=== PATIENT | male | born 1995 | race Caucasian/White ===

== ENCOUNTER 2022-07-17 06:17 | Emergency (ER) | payer MEDICAID ==
[2022-07-17] MEDS ORDERED: Acetaminophen/oxyCODONE 325-5 MG Tab PO ONE (07:14)
[2022-07-17] MEDS ORDERED: Ondansetron 4 MG Tab.DIS PO ONE (07:14)
== END 2022-07-17 09:40 | disposition home or self-care (01) ==
LOC: JD.ED 06:17
DX: S83.412A Sprain of medial collateral ligament of left knee, initial encounter (principal); M23.8X2 Other internal derangements of left knee; Z88.8 Allergy status to other drugs, medicaments and biological substances
CPT/HCPCS: 73562; 99283; A9270

== ENCOUNTER 2023-01-23 15:29 | Emergency (ER) | payer MEDICAID | END 2023-01-23 17:39 | disposition home or self-care (01) | LOC: JD.ED 15:29 | DX: S83.411A Sprain of medial collateral ligament of right knee, initial encounter (principal); R60.0 Localized edema; Z88.5 Allergy status to narcotic agent; Z88.8 Allergy status to other drugs, medicaments and biological substances; W00.0XXA Fall on same level due to ice and snow, initial encounter | CPT/HCPCS: 73564-26-RT; 73564-RT; 99283 ==

== ENCOUNTER 2023-02-12 23:26 | Emergency (ER) | payer MEDICAID | END 2023-02-13 00:11 | disposition home or self-care (01) | LOC: JD.ED 23:26 | DX: S02.2XXA Fracture of nasal bones, initial encounter for closed fracture (principal); F10.929 Alcohol use, unspecified with intoxication, unspecified; F17.210 Nicotine dependence, cigarettes, uncomplicated; Z88.5 Allergy status to narcotic agent; Y04.0XXA Assault by unarmed brawl or fight, initial encounter | CPT/HCPCS: 70160; 70160-26; 99283 ==

== ENCOUNTER 2024-09-24 12:00 | Emergency (ER) | payer MEDICAID ==
[2024-09-24] MEDS: Metoclopramide 10 MG/2 ML SDV IVPUSH ONE (13:05)
[2024-09-24] MEDS: Sodium Chloride 0.9% 1,000 ML IV ONE (13:08)
[2024-09-24 13:58] LABS: BASOPHILS ABSOLUTE AUTO 0.1 K/mm3 (0.0-0.2); BASOPHILS PERCENT AUTO 0.4 % (0.0-1.0); EOSINOPHILS PERCENT AUTO 0.1 % (0.0-6.0); HEMATOCRIT 48.6 % (42.0-52.0); IMMATURE GRAN ABSOLUTE AUTO 0.06 K/mm3 (0.00-0.05); IMMATURE GRAN PERCENT AUTO 0.5 % (0.0-0.4); LYMPHOCYTES ABSOLUTE AUTO 0.9 K/mm3 (1.0-4.8); LYMPHOCYTES PERCENT AUTO 6.8 % (24.0-44.0); MEAN PLATELET VOLUME 10.2 fl (9.4-12.4); MONOCYTES ABSOLUTE AUTO 0.6 K/mm3 (0.0-0.8); MONOCYTES PERCENT AUTO 4.7 % (0.0-8.0); NEUTROPHILS ABSOLUTE AUTO 11.3 K/mm3 (1.8-7.7); NEUTROPHILS PERCENT AUTO 87.5 % (41.0-71.0); PLATELET COUNT,PLT 321 K/mm3 (150-400); RED BLOOD CELL COUNT 5.31 M/mm3 (4.52-5.90)
[2024-09-24 14:09] LABS: MEAN CORPUSCULAR VOLUME 91.5 fl (83.0-99.0)
[2024-09-24 14:15] LABS: A/G RATIO 1.2 (1-2); ALBUMIN 3.9 g/dl (3.4-5.0); ANION GAP 15.5 (5-15); BILIRUBIN TOTAL 0.9 mg/dL (0.2-1.0); BUN/CREATININE RATIO 11.7 (14-18); C-REACTIVE PROTEIN 0.33 mg/dL (<0.30); CALCIUM 9.5 mg/dL (8.5-10.1); CREATININE 1.2 mg/dL (0.7-1.3); EST CRCL DRUG DOSING (CG) 100.59 mL/min; POTASSIUM,K 3.5 mEq/L (3.5-5.1); PROTEIN TOTAL,TP 7.3 g/dl (6.4-8.2)
[2024-09-24] MEDS: Iopamidol 612 MG/ML 100 ML Bottle IVPUSH ONE (14:51)
[2024-09-24] MEDS: Sodium Chloride 0.9% 10 ML Syringe FLUSH PRN (14:51)
== END 2024-09-24 16:50 | disposition home or self-care (01) ==
LOC: JD.ED 12:00
DX: R11.2 Nausea with vomiting, unspecified (principal); F17.210 Nicotine dependence, cigarettes, uncomplicated; Z88.5 Allergy status to narcotic agent; Z88.6 Allergy status to analgesic agent
CPT/HCPCS: 36415; 74177; 80053; 83690; 85025; 86140; 96361; 96374; 99285; J2765; J3490; J7030; Q9967

== ENCOUNTER 2024-09-25 00:26 | Emergency (ER) | payer MEDICAID ==
[2024-09-25] MEDS: Lactated Ringers 1,000 ML IV SCH (00:41)
[2024-09-25] MEDS: Thiamine 200 MG/2 ML MDV IVPUSH ONE (00:41)
[2024-09-25] MEDS: LORazepam 2 MG/ML SDV IVPUSH ONE (00:41)
[2024-09-25] MEDS: Metoclopramide 10 MG/2 ML SDV IVPUSH ONE (00:41)
[2024-09-25 00:58] LABS: BASOPHILS PERCENT AUTO 0.3 % (0.0-1.0); EOSINOPHILS PERCENT AUTO 0.2 % (0.0-6.0); HEMATOCRIT 49.3 % (42.0-52.0); HEMOGLOBIN 17.3 gm/dl (14.0-18.0); IMMATURE GRAN ABSOLUTE AUTO 0.04 K/mm3 (0.00-0.05); IMMATURE GRAN PERCENT AUTO 0.3 % (0.0-0.4); LYMPHOCYTES PERCENT AUTO 16.1 % (24.0-44.0); MEAN CORPUSCULAR HEMOGLOBIN 32.5 pg (28.0-32.0); MEAN CORPUSCULAR HGB CONC 35.1 g/dl (32.0-36.0); MEAN CORPUSCULAR VOLUME 92.7 fl (83.0-99.0); MEAN PLATELET VOLUME 9.7 fl (9.4-12.4); MONOCYTES ABSOLUTE AUTO 0.9 K/mm3 (0.0-0.8); MONOCYTES PERCENT AUTO 7.6 % (0.0-8.0); NEUTROPHILS ABSOLUTE AUTO 9.3 K/mm3 (1.8-7.7); NEUTROPHILS PERCENT AUTO 75.5 % (41.0-71.0); PLATELET COUNT,PLT 332 K/mm3 (150-400); RED BLOOD CELL COUNT 5.32 M/mm3 (4.52-5.90)
[2024-09-25 01:15] LABS: INR 1.08; PROTHROMBIN TIME 11.4 SECONDS (9.7-12.0)
[2024-09-25 01:17] LABS: PTT,PARTIAL THROMBOPLSTIN TIME 25.3 SECONDS (21.7-31.4)
[2024-09-25 01:20] LABS: A/G RATIO 1.2 (1-2); ALBUMIN 3.9 g/dl (3.4-5.0); ANION GAP 17.1 (5-15); BILIRUBIN TOTAL 1.1 mg/dL (0.2-1.0); BUN/CREATININE RATIO 7.7 (14-18); C-REACTIVE PROTEIN 0.21 mg/dL (<0.30); CALCIUM 9.3 mg/dL (8.5-10.1); CREATININE 1.3 mg/dL (0.7-1.3); EST CRCL DRUG DOSING (CG) 92.98 mL/min; MAGNESIUM 1.7 mg/dL (1.8-2.4); POTASSIUM,K 3.1 mEq/L (3.5-5.1); PROTEIN TOTAL,TP 7.2 g/dl (6.4-8.2)
[2024-09-25] MEDS: Iopamidol 612 MG/ML 100 ML Bottle IVPUSH ONE (01:37)
[2024-09-25 01:39] LABS: LACTIC ACID 2.2 mmol/L (0.4-2.0)
[2024-09-25] MEDS: Pantoprazole 40 MG Vial IVPUSH ONE (02:07)
[2024-09-25] MEDS: Pantoprazole 80 MG in Sodium Chloride 0.9% 100 ML IV SCH (02:07)
[2024-09-25] MEDS: Dextrose 5%-0.9% NaCl with KCl 1,000 ML IV SCH (02:16)
== END 2024-09-25 09:16 | disposition home or self-care (01) ==
LOC: JD.ED 00:26
DX: K92.0 Hematemesis (principal); Z88.8 Allergy status to other drugs, medicaments and biological substances
CPT/HCPCS: 36415; 71260; 74177; 80053; 80307; 82010; 83605; 83690; 83735; 85025; 85610; 85730; 86140; 96361; 96365; 96366; 96368; 96375; 99285; J2060; J2470; J2765; J3411; J3480; J3490; J7120; Q9967; 99284

== ENCOUNTER 2024-09-26 11:44 | Emergency (ER) | payer MEDICAID | END 2024-09-26 11:45 | disposition left against medical advice (07) | LOC: JD.ED 11:44 ==

== ENCOUNTER 2024-09-26 15:41 | Emergency (ER) | payer MEDICAID ==
[2024-09-26] MEDS: Sodium Chloride 0.9% 10 ML Syringe FLUSH PRN (17:02)
[2024-09-26] MEDS: droPERidol 5 MG/2 ML SDV IVPUSH ONE (17:02)
[2024-09-26 17:06] LABS: BASOPHILS PERCENT AUTO 0.2 % (0.0-1.0); EOSINOPHILS PERCENT AUTO 0.1 % (0.0-6.0); HEMATOCRIT 49.6 % (42.0-52.0); HEMOGLOBIN 17.6 gm/dl (14.0-18.0); IMMATURE GRAN ABSOLUTE AUTO 0.05 K/mm3 (0.00-0.05); IMMATURE GRAN PERCENT AUTO 0.4 % (0.0-0.4); LYMPHOCYTES ABSOLUTE AUTO 0.8 K/mm3 (1.0-4.8); MEAN CORPUSCULAR HEMOGLOBIN 32.5 pg (28.0-32.0); MEAN CORPUSCULAR HGB CONC 35.5 g/dl (32.0-36.0); MEAN CORPUSCULAR VOLUME 91.7 fl (83.0-99.0); MEAN PLATELET VOLUME 9.8 fl (9.4-12.4); MONOCYTES ABSOLUTE AUTO 0.6 K/mm3 (0.0-0.8); MONOCYTES PERCENT AUTO 4.4 % (0.0-8.0); NEUTROPHILS ABSOLUTE AUTO 12.1 K/mm3 (1.8-7.7); NEUTROPHILS PERCENT AUTO 88.9 % (41.0-71.0); PLATELET COUNT,PLT 352 K/mm3 (150-400); RED BLOOD CELL COUNT 5.41 M/mm3 (4.52-5.90); WHITE BLOOD CELL COUNT,WBC 13.58 K/mm3 (3.9-11.3)
[2024-09-26] MEDS: Sodium Chloride 0.9% 1,000 ML IV SCH (17:06)
[2024-09-26 17:32] LABS: A/G RATIO 1.2 (1-2); ALBUMIN 4.2 g/dl (3.4-5.0); ANION GAP 17.3 (5-15); BUN/CREATININE RATIO 6.2 (14-18); C-REACTIVE PROTEIN 0.1 mg/dL (<0.30); CALCIUM 9.9 mg/dL (8.5-10.1); CREATININE 1.3 mg/dL (0.7-1.3); EST CRCL DRUG DOSING (CG) 92.85 mL/min; MAGNESIUM 1.7 mg/dL (1.8-2.4); POTASSIUM,K 3.3 mEq/L (3.5-5.1); PROTEIN TOTAL,TP 7.8 g/dl (6.4-8.2)
[2024-09-26] MEDS: Dextrose 5%-0.9% NaCl with KCl 1,000 ML IV SCH (19:35)
== END 2024-09-26 20:26 | disposition home or self-care (01) ==
LOC: JD.ED 15:41
DX: R11.2 Nausea with vomiting, unspecified (principal); F12.10 Cannabis abuse, uncomplicated; E83.42 Hypomagnesemia; Z87.19 Personal history of other diseases of the digestive system; Z88.5 Allergy status to narcotic agent; Z88.8 Allergy status to other drugs, medicaments and biological substances
CPT/HCPCS: 36415; 80053; 80307; 83690; 83735; 85025; 86140; 96361; 96365; 96375; 99284; J1790; J3480; J3490; J7030

== ENCOUNTER 2025-06-04 16:31 | Emergency (ER) | payer MEDICAID ==
[2025-06-04] MEDS: droPERidol 2.5 MG/ML SDV IV STA (17:08)
[2025-06-04 17:12] LABS: BASOPHILS ABSOLUTE AUTO 0.1 K/mm3 (0.0-0.2); BASOPHILS PERCENT AUTO 0.6 % (0.0-1.0); EOSINOPHILS ABSOLUTE AUTO 0.1 K/mm3 (0.0-0.4); EOSINOPHILS PERCENT AUTO 0.5 % (0.0-6.0); IMMATURE GRAN ABSOLUTE AUTO 0.05 K/mm3 (0.00-0.05); IMMATURE GRAN PERCENT AUTO 0.4 % (0.0-0.4); LYMPHOCYTES ABSOLUTE AUTO 2.1 K/mm3 (1.0-4.8); LYMPHOCYTES PERCENT AUTO 18.6 % (24.0-44.0); MEAN PLATELET VOLUME 9.7 fl (9.4-12.4); MONOCYTES ABSOLUTE AUTO 0.9 K/mm3 (0.0-0.8); MONOCYTES PERCENT AUTO 8.0 % (0.0-8.0); NEUTROPHILS ABSOLUTE AUTO 8.2 K/mm3 (1.8-7.7); NEUTROPHILS PERCENT AUTO 71.9 % (41.0-71.0); NRBC ABSOLUTE 0.00 (0.00-0.02); NRBC PERCENT 0.0 % (0.0-0.2); PLATELET COUNT,PLT 331 K/mm3 (150-400); RED BLOOD CELL COUNT 5.47 M/mm3 (4.52-5.90); WHITE BLOOD CELL COUNT,WBC 11.45 K/mm3 (3.9-11.3)
[2025-06-04 18:18] LABS: A/G RATIO 1.2 (1-2); ALANINE AMINOTRANSFERASE,ALT 46.0 U/L (16-63); ASPARTATE AMNIOTRANSFERASE,AST 28.0 U/L (15-37); BILIRUBIN TOTAL 1.8 mg/dL (0.2-1.0); BLOOD UREA NITROGEN,BUN 13.0 mg/dL (7-18); CARBON DIOXIDE,CO2 27.0 mEq/L (21-32); CHLORIDE,CL 99.0 mEq/L (98-107); CREATINE KINASE,CK 351.0 U/L (39-308); CREATININE 1.0 mg/dL (0.7-1.3); EST CRCL DRUG DOSING (CG) 119.63 mL/min; ESTIMATED GFR 104.0 mL/min (>60); GLUCOSE RANDOM 89.0 mg/dL (70-99); POTASSIUM,K 3.7 mEq/L (3.5-5.1); PROTEIN TOTAL,TP 8.3 g/dl (6.4-8.2); SODIUM,NA 139.0 mEq/L (136-145)
[2025-06-04 18:20] LABS: ETHANOL BLOOD MEDICAL 0.0 gm% (0.00)
== END 2025-06-04 19:24 | disposition home or self-care (01) ==
LOC: JD.ED 16:31
DX: K29.70 Gastritis, unspecified, without bleeding (principal); R11.2 Nausea with vomiting, unspecified; Z88.5 Allergy status to narcotic agent; Z88.6 Allergy status to analgesic agent; Z79.899 Other long term (current) drug therapy
CPT/HCPCS: 36415; 80053; 80307; 82550; 83690; 83735; 85025; 96361; 96365; 96375; 99284; J1790; J3475; J7030; 99283